=== PATIENT | female | born 1940 | race Caucasian/White ===

== ENCOUNTER 2024-12-25 09:07 | Inpatient (IN) | payer OTHER, MEDICARE ==
[2024-12-25 10:13] LABS: BASO % 0.2 % (0-2.0); EOS % 0.1 % (0-4.5); HEMATOCRIT 36.2 % (32.4-45.2); HEMOGLOBIN 11.8 GM/dL (10.7-15.3); MCH 30.8 pg (25.7-33.7); MCHC 32.7 g/dl (32.0-36.0); MEAN CELL VOLUME 94.2 fl (80-96); MEAN PLT VOLUME 8.9 fl (7.5-11.1); MONO % 18.8 % (3.8-10.2); NEUT % 72.9 % (42.8-82.8); PLATELET COUNT 421 10^3/uL (134-434); RBC 3.84 M/mm3 (3.60-5.2); RDW 14.6 % (11.6-15.6); WHITE BLOOD COUNT 11.4 K/mm3 (4.0-10.0)
[2024-12-25 10:38] LABS: ACTIVATED PTT 38.7 SECONDS (25.2-36.5); INR 1.24 (0.83-1.09); PROTHROMBIN TIME (PATIENT) 13.6 SEC (9.7-13.0)
[2024-12-25 10:39] LABS: POTASSIUM 5.1 mmol/L (3.5-5.1)
[2024-12-25 10:41] LABS: ALBUMIN 3.4 g/dl (3.4-5.0); CALCIUM 9.3 mg/dL (8.5-10.1)
[2024-12-25 10:42] LABS: BLOOD UREA NITROGEN 46.2 mg/dL (7-18); MAGNESIUM 2.3 mg/dL (1.8-2.4)
[2024-12-25 10:45] LABS: CREATININE 0.8 mg/dL (0.55-1.3)
[2024-12-25 10:46] LABS: TOT PROT 7.8 g/dl (6.4-8.2)
[2024-12-25 10:50] LABS: N-TERMINAL BNP 7291.3 pg/ml (5-450)
[2024-12-25 10:58] LABS: EPI CELLS 10 /uL (0-25.1); HYALINE CASTS 1 /uL (0-3.1); URINE APPEARANCE CLEAR; URINE BACTERIA 3571 /uL (0-1359); URINE BILIRUBIN NEGATIVE (NEGATIVE); URINE COLOR YELLOW; URINE GLUCOSE (UA) NEGATIVE (NEGATIVE); URINE KETONE 1+ (NEGATIVE); URINE LEUK ESTERASE 2+ (NEGATIVE); URINE NITRITE POSITIVE (NEGATIVE); URINE PROTEIN 2+ (NEGATIVE); URINE RBC 28 /uL (0-23.9); URINE UROBILINOGEN 0.2 mg/dL (0.2-1.0); URINE WBC 519 /uL (0-25.8)
[2024-12-25] MEDS ORDERED: cefTRIAXone SODIUM 1 GM VIAL ONE (11:44)
[2024-12-25] MEDS ORDERED: FUROSEMIDE 40 MG/4 ML INJECTABLE VIAL ONE (11:51)
[2024-12-25] MEDS: FUROSEMIDE 40 MG/4 ML INJECTABLE VIAL IVPUSH ONE (12:01)
[2024-12-25] MEDS ORDERED: ATENOLOL 50 MG TABLET (FP) ONE (12:49)
[2024-12-25] MEDS ORDERED: VALSARTAN 80 MG TABLET ONE (12:49)
[2024-12-25] MEDS ORDERED: AZITHROMYCIN IVPB 500 MG/250 ML BAG IVPB ONE (12:50)
[2024-12-25] MEDS: VALSARTAN 40 MG TABLET PO SCH (13:03)
[2024-12-25] MEDS: AZITHROMYCIN IVPB 500 MG in DEXTROSE 5%-WATER - 250 ML IVPB ONE (13:03)
[2024-12-25] MEDS: ATENOLOL 50 MG TABLET (FP) PO SCH (13:03)
[2024-12-25] MEDS: HEPARIN NA (PORCINE) 5,000 UNITS/ML 1ML VIAL SQ SCH (22:21)
[2024-12-25] MEDS ORDERED: HEPARIN NA (PORCINE) 5,000 UNITS/ML 1ML VIAL ONE (22:22)
[2024-12-26 07:25] LABS: BASO % 0.2 % (0-2.0); EOS % 0.5 % (0-4.5); HEMATOCRIT 29.5 % (32.4-45.2); HEMOGLOBIN 9.8 GM/dL (10.7-15.3); LYMPH % 14.6 % (8-40); MCH 31.5 pg (25.7-33.7); MCHC 33.4 g/dl (32.0-36.0); MEAN CELL VOLUME 94.4 fl (80-96); MEAN PLT VOLUME 9.3 fl (7.5-11.1); MONO % 19.7 % (3.8-10.2); PLATELET COUNT 365 10^3/uL (134-434); RBC 3.12 M/mm3 (3.60-5.2); WHITE BLOOD COUNT 9.8 K/mm3 (4.0-10.0)
[2024-12-26 07:29] LABS: POTASSIUM 4.1 mmol/L (3.5-5.1)
[2024-12-26 07:31] LABS: CALCIUM 8.3 mg/dL (8.5-10.1)
[2024-12-26 07:32] LABS: BLOOD UREA NITROGEN 39.1 mg/dL (7-18)
[2024-12-26 07:35] LABS: CREATININE 0.8 mg/dL (0.55-1.3)
[2024-12-26 07:36] LABS: BILIRUBIN,TOTAL 0.4 mg/dL (0.2-1)
[2024-12-26 07:39] LABS: ALBUMIN 2.6 g/dl (3.4-5.0)
[2024-12-26] MEDS ORDERED: ATENOLOL 50 MG TABLET (FP) ONE (09:25)
[2024-12-26] MEDS ORDERED: VALSARTAN 80 MG TABLET ONE (09:26)
[2024-12-26] MEDS ORDERED: HEPARIN NA (PORCINE) 5,000 UNITS/ML 1ML VIAL ONE (09:26)
[2024-12-26] MEDS ORDERED: CEFTRIAXONE 1 G/50 ML PREMIX 50 ML IVPB ONE (09:26)
[2024-12-26] MEDS: CEFTRIAXONE 1 G/50 ML PREMIX 50 ML IVPB SCH (10:03)
[2024-12-26] MEDS ORDERED: AZITHROMYCIN IVPB 500 MG/250 ML BAG IVPB ONE (10:49)
[2024-12-26] MEDS: AZITHROMYCIN IVPB 500 MG/250 ML BAG IVPB SCH (10:54)
[2024-12-27] MEDS: VALSARTAN 40 MG TABLET PO SCH (09:44)
[2024-12-27 10:17] LABS: BASO % 0.2 % (0-2.0); HEMATOCRIT 31.5 % (32.4-45.2); HEMOGLOBIN 10.5 GM/dL (10.7-15.3); LYMPH % 16.6 % (8-40); MCHC 33.2 g/dl (32.0-36.0); MEAN CELL VOLUME 93.4 fl (80-96); MEAN PLT VOLUME 9.2 fl (7.5-11.1); MONO % 19.2 % (3.8-10.2); PLATELET COUNT 360 10^3/uL (134-434); RBC 3.37 M/mm3 (3.60-5.2)
[2024-12-27 11:18] LABS: ALBUMIN 2.8 g/dl (3.4-5.0); BLOOD UREA NITROGEN 23.3 mg/dL (7-18); CALCIUM 8.5 mg/dL (8.5-10.1); POTASSIUM 4.4 mmol/L (3.5-5.1)
[2024-12-27 11:22] LABS: CREATININE 0.7 mg/dL (0.55-1.3)
[2024-12-27 11:23] LABS: BILIRUBIN,TOTAL 0.5 mg/dL (0.2-1); TOT PROT 6.4 g/dl (6.4-8.2)
[2024-12-27 14:52] VITALS: BMI 19.9
[2024-12-27 16:35] VITALS: RESP 18
[2024-12-29 09:53] LABS: HEMATOCRIT 31.5 % (32.4-45.2); HEMOGLOBIN 10.2 GM/dL (10.7-15.3); MCHC 32.5 g/dl (32.0-36.0); MEAN CELL VOLUME 95.3 fl (80-96); MEAN PLT VOLUME 9.2 fl (7.5-11.1); PLATELET COUNT 328 10^3/uL (134-434); WHITE BLOOD COUNT 9.1 K/mm3 (4.0-10.0)
[2024-12-29] MEDS: amLODIPine BESYLATE 2.5 MG TABLET (FP) PO SCH (09:58)
[2024-12-29 10:32] LABS: POTASSIUM 4.5 mmol/L (3.5-5.1)
[2024-12-29 10:34] LABS: BLOOD UREA NITROGEN 17.4 mg/dL (7-18); CALCIUM 8.6 mg/dL (8.5-10.1)
[2024-12-29 10:35] LABS: ALBUMIN 2.6 g/dl (3.4-5.0)
[2024-12-29 10:38] LABS: CREATININE 0.6 mg/dL (0.55-1.3)
[2024-12-29 10:39] LABS: BILIRUBIN,TOTAL 0.6 mg/dL (0.2-1)
[2024-12-29 10:40] LABS: TOT PROT 6.1 g/dl (6.4-8.2)
[2024-12-29 11:23] LABS: ANISOCYTOSIS 1+; MACROCYTOSIS 1+
[2024-12-29] MEDS: LACTOBACILLUS ACIDOPHILUS 1 TABLET PO SCH (21:47)
[2024-12-30] MEDS: amLODIPine BESYLATE 5 MG TABLET (FP) PO SCH (09:40)
[2024-12-30 10:04] VITALS: BP 142/53; PULSE 71; TEMP 98.4
== END 2024-12-30 14:11 | DRG 193 ==
LOC: JER 09:07 → JERBED 11:21 → J5S 12-26 15:22
PROVIDERS: ADMIT Internal Medicine; ATTEND Internal Medicine
DX: J18.9 Pneumonia, unspecified organism (principal); G93.41 Metabolic encephalopathy; N39.0 Urinary tract infection, site not specified; I11.0 Hypertensive heart disease with heart failure; I50.9 Heart failure, unspecified; R41.0 Disorientation, unspecified
CPT/HCPCS: 0241U-QW; 36415; 70450-TC; 71045-TC-FY; 80053; 80061; 81003; 82272; 82550; 83036; 83605; 83735; 83880; 84439; 84443; 84484; 85025; 85610; 85730; 87040; 87086; 87186; 87635; 93005; 93010; 93306-TC; 97116-GP; 97161-GP; 99285-25; J1644